=== PATIENT | female | born 1960 | race Caucasian/White ===

== ENCOUNTER → 2019-06-23 15:03 | Outpatient (CLI) | payer OTHER, SELFPAY ==
--- NOTE | ~2019-06-23 | XR_ITS ---
EXAMINATION: XR foot RT min 3V, XR tibia fibula RT 2V DATE: 06/23/2019 15:30 INDICATION: Right foot and lower leg pain TECHNIQUE: 1. Anteroposterior and lateral views of the right tibia and fibula were obtained. 2. Dorsoplantar, two oblique and lateral views of the right foot were obtained. COMPARISON: None. FINDINGS: Normal alignment of the right lower leg from the right knee through the right foot. No fracture. Mild osteoarthritis at the first metatarsophalangeal joint. Joint spaces appear otherwise relatively pres erved. Small to moderate Achilles and plantar calcaneal spurs. No cortical erosions or periosteal abdifatah ction. Soft tissue swelling about the lateral malleolus. No right ankle joint effusion. IMPRESSION: 1. Achilles and plantar calcaneal spurs and mild osteoarthritis at the first metatarsophalangeal join t. No acute osseous abnormality to right lower leg or foot. Reviewed, dictated and finalized at location A. [employer] TECH[employer]ICIAN IMPRESSION: 1. Achilles and plantar calcaneal spurs and mild osteoarthritis at the first fl tatarsophalangeal joint. No acute osseous abnormality to right lower leg or martin t.
== END ==
PROVIDERS: PCP Physician Assistant; Visit Provider Physician Assistant
DX: M77.31 Calcaneal spur, right foot (principal); M79.604 Pain in right leg
CPT/HCPCS: 73590; 73630

== ENCOUNTER 2020-06-27 07:35 | Outpatient (CLI) | payer OTHER, SELFPAY ==
--- NOTE | ~2020-06-27 | CT_ITS ---
EXAMINATION: CT abdomen pelvis wo/w con DATE: 06/27/2020 08:26 INDICATION: Hematuria TECHNIQUE: Computed tomography (CT) of the abdomen and pelvis was performed without intravenous contr ast. CT of the abdomen and pelvis was then performed with a total of 130 mL Omnipaque 350 intravenous contrast using a double-bolus technique for simultaneous opacification of the renal parenchyma and r enal collecting system. The dose-length product (DLP) was 1528.00 mGy-cm. Automated exposure control and iterative reconstruction technique were employed. COMPARISON: None FINDINGS: The lung bases are clear. The heart size is normal. The gallbladder is surgically absent. T he liver, spleen, pancreas, and adrenal glands are normal. Calcification in the tail of the pancreas appears to be related to the splenic vasculature. The kidneys are unremarkable. No stones are identif ied in the kidneys, ureters, or bladder. There is no hydronephrosis or hydroureter. No suspicious james al or urothelial lesion is identified. No pathologically enlarged abdominal or pelvic lymph nodes are identified. There is no free intraperitoneal gas or evidence of bowel obstruction. There is a mild g roundglass appearance of the small bowel mesentery which could reflect mesenteric adenitis. There is mild lumbar spondylosis. IMPRESSION: 1. No CT correlate for the patient's symptoms. Reviewed, dictated and finalized at location A. S PERSON
[2020-06-27 08:05] LABS: Estimated Glomerular Filt Rate > 60
== END 2020-06-27 07:36 | disposition home or self-care (01) ==
LOC: ANHIMG 07:37
PROVIDERS: PCP Physician Assistant; Visit Provider Physician Assistant
DX: R31.0 Gross hematuria (principal)
CPT/HCPCS: 74178; Q9967

== ENCOUNTER 2021-01-11 14:15 | Outpatient (CLI) | payer OTHER, SELFPAY ==
--- NOTE | ~2021-01-11 | US_ITS ---
EXAMINATION: US venous doppler LE RT DATE: 01/11/2021 14:45 INDICATION: Right lower limb pain TECHNIQUE: Grayscale ultrasound images without and with compression and Doppler ultrasound images of the right lower extremity veins were obtained. COMPARISON: None. FINDINGS: The visualized portions of right common femoral vein, profunda (deep) femoral vein, femoral vein, pop liteal vein, peroneal trunk, posterior tibial veins, peroneal veins, gastrocnemius vein and greater s aphenous vein outflow are patent. IMPRESSION: 1. No deep venous thrombosis in the right lower limb. Reviewed, dictated and finalized at location A.
== END 2021-01-11 14:16 ==
PROVIDERS: PCP Physician Assistant; Visit Provider Physician Assistant
DX: R25.2 Cramp and spasm (principal)
CPT/HCPCS: 93971

== ENCOUNTER → 2021-03-07 15:54 | Outpatient (CLI) | payer OTHER, SELFPAY ==
--- NOTE | ~2021-03-07 | XR_ITS ---
EXAMINATION: XR foot RT min 3V DATE: 03/07/2021 16:09 INDICATION: Right foot pain. TECHNIQUE: 4 views of right foot were obtained. COMPARISON: Right foot radiographs 06/23/2019 FINDINGS: Bone alignment is normal. No fracture. There is mild osteoarthritis of some of the interpha langeal joints. There are enthesophytes at the posterior and plantar aspects of calcaneal tuberosity. IMPRESSION: 1. Mild polyarticular osteoarthritis. Reviewed, dictated and finalized at location A.
== END ==
PROVIDERS: PCP Physician Assistant; Visit Provider Physician Assistant
DX: M79.671 Pain in right foot (principal); M19.071 Primary osteoarthritis, right ankle and foot
CPT/HCPCS: 73630